=== PATIENT | male | born 1965 | race Caucasian/White ===

== ENCOUNTER → 2021-10-13 08:26 | Outpatient (BNVA) | payer MEDICAID, SELFPAY | PROVIDERS: Family Provider Nurse Practitioner Family; PCP Family Medicine; Visit Provider Internal Medicine Rheumatology | DX: M15.9 Polyosteoarthritis, unspecified (principal); R76.8 Other specified abnormal immunological findings in serum; Z11.59 Encounter for screening for other viral diseases; Z11.1 Encounter for screening for respiratory tuberculosis; M76.51 Patellar tendinitis, right knee; Z79.899 Other long term (current) drug therapy; Z71.85 Encounter for immunization safety counseling | CPT/HCPCS: 36415; 72202; 73130; 73562; 73630; 82306; 85651; 86038; 86140; 86200; 86480; 86704; 86803; 86812; 87340; 99204 ==

== ENCOUNTER 2021-11-06 12:52 | Outpatient (CLI) | payer MEDICAID, SELFPAY ==
[2021-11-09 12:22] LABS: THYROID PEROXIDASE ANTIBODIES 1 IU/mL (<9)
[2021-11-09 12:48] LABS: COMPLEMENT, TOTAL (CH50) >60 U/mL (31-60)
[2021-11-09 13:03] LABS: COMPLEMENT COMPONENT C3C 122 mg/dL (82-185); COMPLEMENT COMPONENT C4C 19 mg/dL (15-53)
[2021-11-09 15:03] LABS: CENTROMERE B ANTIBODY <1.0 NEG AI (<1.0 NEG); JO-1 ANTIBODY <1.0 NEG AI (<1.0 NEG); RNP ANTIBODY <1.0 NEG AI (<1.0 NEG); SCL-70 ANTIBODY <1.0 NEG AI (<1.0 NEG); SJOGREN'S ANTIBODY (SS-A) <1.0 NEG AI (<1.0 NEG); SM ANTIBODY <1.0 NEG AI (<1.0 NEG); SS-B <1.0 NEG AI (<1.0 NEG)
[2021-11-10 13:58] LABS: ANA SCREEN, IFA POSITIVE (NEGATIVE)
[2021-11-10 15:37] LABS: DNA AB (DS) CRITHIDIA,IFA NEGATIVE (NEGATIVE)
== END 2021-11-06 12:53 | disposition home or self-care (01) ==
LOC: LAB 12:54
PROVIDERS: PCP Family Medicine; Visit Provider Internal Medicine Rheumatology
DX: R76.8 Other specified abnormal immunological findings in serum (principal)
CPT/HCPCS: 36415; 86160; 86162; 86235; 86255; 86376

== ENCOUNTER → 2021-12-24 12:10 | Outpatient (BNVA) | payer MEDICAID, SELFPAY | PROVIDERS: PCP Family Medicine; Visit Provider Internal Medicine Rheumatology | DX: M15.9 Polyosteoarthritis, unspecified (principal); Z79.899 Other long term (current) drug therapy; L40.0 Psoriasis vulgaris; R76.8 Other specified abnormal immunological findings in serum; Z71.85 Encounter for immunization safety counseling | CPT/HCPCS: 99214 ==

== ENCOUNTER → 2022-01-25 09:46 | Outpatient (BNVA) | payer MEDICAID, SELFPAY | PROVIDERS: PCP Family Medicine; Visit Provider Internal Medicine Rheumatology | DX: M19.90 Unspecified osteoarthritis, unspecified site (principal); M54.89 Other dorsalgia; Z79.899 Other long term (current) drug therapy | CPT/HCPCS: 80076; 82565; 85025; 86140 ==

== ENCOUNTER → 2022-04-20 10:12 | Outpatient (BNVA) | payer MEDICAID, SELFPAY | PROVIDERS: PCP Family Medicine; Visit Provider Internal Medicine Rheumatology | DX: M19.90 Unspecified osteoarthritis, unspecified site (principal); Z79.899 Other long term (current) drug therapy | CPT/HCPCS: 72040; 72100; 72202; 80076; 82565; 85025; 86140 ==

== ENCOUNTER → 2022-07-29 10:17 | Outpatient (BNVA) | payer MEDICAID, SELFPAY | PROVIDERS: PCP Family Medicine; Visit Provider Internal Medicine Rheumatology | DX: L40.50 Arthropathic psoriasis, unspecified (principal); M19.90 Unspecified osteoarthritis, unspecified site; Z79.899 Other long term (current) drug therapy | CPT/HCPCS: 80076; 82565; 85025; 86140 ==

== ENCOUNTER → 2022-09-30 12:04 | Outpatient (BNVA) | payer MEDICAID, SELFPAY | PROVIDERS: PCP Family Medicine; Visit Provider Internal Medicine Rheumatology | DX: Z79.899 Other long term (current) drug therapy (principal); L40.50 Arthropathic psoriasis, unspecified | CPT/HCPCS: 82306; 82607; 82746; 84439; 84443 ==

== ENCOUNTER → 2023-01-25 10:21 | Outpatient (BNVA) | payer MEDICAID, SELFPAY | PROVIDERS: Visit Provider Internal Medicine Rheumatology | DX: Z79.899 Other long term (current) drug therapy (principal); L40.50 Arthropathic psoriasis, unspecified; L40.0 Psoriasis vulgaris; R76.8 Other specified abnormal immunological findings in serum; Z71.85 Encounter for immunization safety counseling | CPT/HCPCS: 80076; 82565; 85025; 86140 ==

== ENCOUNTER → 2025-02-05 11:21 | Outpatient (BNVA) | payer MEDICARE, SELFPAY | PROVIDERS: PCP Physician Assistant; Visit Provider Internal Medicine Rheumatology | DX: L40.50 Arthropathic psoriasis, unspecified (principal); L40.0 Psoriasis vulgaris; R76.8 Other specified abnormal immunological findings in serum; Z71.85 Encounter for immunization safety counseling; Z79.899 Other long term (current) drug therapy; M06.041 Rheumatoid arthritis without rheumatoid factor, right hand; M06.042 Rheumatoid arthritis without rheumatoid factor, left hand; M76.51 Patellar tendinitis, right knee | CPT/HCPCS: 99214 ==